=== PATIENT | female | born 1995 | race Caucasian/White ===

== ENCOUNTER 2017-10-03 17:07 | Emergency (ER) | payer OTHER ==
[2017-10-03] MEDS ORDERED: Benzoin Compound STICK TOPICAL ONE (18:18)
[2017-10-03 18:23] VITALS: BP 82/50
[2017-10-03] MEDS ORDERED: Tetan/Diph/Pertus SYR(Tdap)* 0.5 ML SYR(BOOSTRIX) use SYR IM ONE (18:25)
--- NOTE | 2017-10-03 18:43 | UC ---
Laceration HPI - HPI Summary HPI Summary: Fell last night and hit the right side of her forehead on her tissue drawer has a 5 mm laceration on her head that is already scabbed and beginning to heal together - History Of Current Complaint Chief Complaint: UCLaceration Stated Complaint: HEAD LACERATION Time Seen by Provider: 10/03/17 18:14 Hx Obtained From: Patient Hx Last Menstrual Period: 09/17/17 Laceration Location: Head Mechanism Of Injury: Blunt Trauma Onset/Duration: Sudden Onset Severity: Mild Pain Intensity: 4 Pain Scale Used: 0-10 Numeric Aggravating Factors: Nothing - Allergies/Home Medications Allergies/Adverse Reactions: Allergies Allergy/AdvReac Type Severity Reaction Status Date / Time No Known Allergies Allergy Verified 10/03/17 18:17 Home Medications: Home Medications NK [No Home Medications Reported] 10/03/17 [History Confirmed 10/03/17] PMH/Surg Hx/FS Hx/Imm Hx Previously Healthy: Yes - Surgical History Surgical History: Yes Surgery Procedure, Year, and Place: L ACL - Family History Known Family History: Positive: None - Social History Occupation: Student Lives: With Family Alcohol Use: None Substance Use Type: None Smoking Status (MU): Never Smoked Tobacco - Immunization History Most Recent Tetanus Shot: 2006 Review of Systems Constitutional: Negative Skin: Other - 5 mm well approximated scabbed laceration to the right side of her forehead Eyes: Negative ENT: Negative Respiratory: Negative Cardiovascular: Negative Gastrointestinal: Negative Genitourinary: Negative Motor: Negative Neurovascular: Negative Musculoskeletal: Negative Neurological: Negative Psychological: Negative Is Patient Immunocompromised?: No All Other Systems Reviewed And Are Negative: Yes Physical Exam Triage Information Reviewed: Yes Appearance: Well-Appearing, No Pain Distress, Well-Nourished Vital Signs: Initial Vital Signs Temp 98.8 F 10/03/17 18:18 Pulse 75 10/03/17 18:18 Resp 16 10/03/17 18:18 BP 82/50 10/03/17 18:18 Pulse Ox 99 10/03/17 18:18 Vital Signs Reviewed: Yes Eye Exam: Normal Eyes: Positive: Conjunctiva Clear ENT Exam: Normal ENT: Positive: Normal ENT inspection, Hearing grossly normal, Pharynx normal. Negative: Trismus, Muffled voice, Hoarse voice Dental Exam: Normal Neck exam: Normal Neck: Positive: Supple, Nontender, No Lymphadenopathy Respiratory Exam: Normal Respiratory: Positive: Chest non-tender, No respiratory distress, No accessory muscle use Cardiovascular Exam: Normal Cardiovascular: Positive: RRR, Pulses Normal, Brisk Capillary Refill Musculoskeletal Exam: Normal Musculoskeletal: Positive: Strength Intact, ROM Intact, No Edema Neurological Exam: Normal Neurological: Positive: Alert, Muscle Tone Normal Psychological Exam: Normal Skin Exam: Other Skin: Positive: Other - 5 mm well approximated laceration to her right side of her forehead that is scabbed and does not open with manipulation Laceration Repair - Laceration Repair 1 Description: Linear Laceration Size After Repair: Length (cm) - 0.5, Width (mm) - 1 W put at Modified For Repair: No Cleansing Completed Via Routine Prep: Yes Irrigation With Pressure Irrigation Device: Yes Closure Material: SteriStrips Closure Method: Single Layer Laceration Course/Dx - Course/Dx Course Of Treatment: Dressing changed to Steri-Strips. Boostrix updated. Follow with PCP or [facility] as needed. Scar precautions reviewed with patient - Differential Dx - Laceration/Wound Provider Diagnoses: 5mm Laceration to right side of her forehead, up date tetanus Discharge - Sign-Out/Discharge Documenting (check all that apply): Discharge/Admit/Transfer - Discharge Plan Condition: Stable Disposition: HOME Patient Education Materials: Diphtheria/Acellular Pertussis/Tetanus Booster Vaccine (By injection), Steristrips (ED), Facial Laceration (ED) Referrals: [facility] [Outside] - If Needed - Billing Disposition and Condition Condition: STABLE Disposition: HOME
== END 2017-10-03 18:49 | disposition home or self-care (01) ==
LOC: UCCORT 17:07
DX: S01.81XA Laceration without foreign body of other part of head, initial encounter (principal); W18.30XA Fall on same level, unspecified, initial encounter; Y92.9 Unspecified place or not applicable; Z23 Encounter for immunization
CPT/HCPCS: 12011; 90471; 90715; 99202; G0463

== ENCOUNTER 2018-05-12 16:57 | Emergency (ER) | payer OTHER ==
[2018-05-12 17:09] VITALS: BP 108/57
--- NOTE | 2018-05-12 17:32 | UC ---
Hand/Wrist HPI - HPI Summary HPI Summary: Patient presents to urgent care with right hand pain. Patient's the weekend was goofing around with friends when she actually struck you cement wall. Patient with bruising and discomfort on her right fifth metacarpal. Patient states swelling is gotten better. Patient's been taking Tylenol. Patient states she still has discomfort with movement. 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 and had difficulty pulling herself up on a being today during class. Patient wanted check for fracture. Patient's right-hand dominant. Patient states she is not . Patient without any other injuries. Patient denies mistreatment. Pts medications reviewed this visit - History Of Current Complaint Chief Complaint: UCUpperExtremity Stated Complaint: RIGHT HAND PAIN Time Seen by Provider: 05/12/18 17:23 Hx Obtained From: Patient Hx Last Menstrual Period: 05/01/18 ?: No Onset/Duration: Sudden Onset Severity Initially: Moderate Severity Currently: Moderate Pain Intensity: 4 - Allergies/Home Medications Allergies/Adverse Reactions: Allergies Allergy/AdvReac Type Severity Reaction Status Date / Time No Known Allergies Allergy Verified 05/12/18 17:04 PMH/Surg Hx/FS Hx/Imm Hx Previously Healthy: Yes - Surgical History Surgical History: Yes Surgery Procedure, Year, and Place: L ACL - Family History Known Family History: Positive: None, Non-Contributory - Social History Occupation: Student Lives: Dormitory/Roommates Alcohol Use: Occasionally Substance Use Type: None Smoking Status (MU): Never Smoked Tobacco - Immunization History Most Recent Tetanus Shot: 2006 Review of Systems All Other Systems Reviewed And Are Negative: Yes Skin: Positive: Bruising, Other - swelling Motor: Positive: Other - swelling and pain right 5th finger Physical Exam - Summary Physical Exam Summary: Vital Signs Reviewed: Yes A+Ox3, no distress Eyes: Conjunctiva Clear ENT: Hearing grossly normal neck: supple Respiratory: Positive: No respiratory distress, No accessory muscle use Cardiovascular: skin color reflect adequate perfusion, 2+ radial, 2+ ulnar CBT <2 sec Musculoskeletal Exam: + flex/ext elbow + pronate/supinate + flex/ext wrist + TTP distal 5th MC - no crepitus no pain carpal, wrist, phalanges full flex.ext against resistance of MCP, DIP,PIP 5ht Neurological: Positive: Alert, ambulatory without difficulty Psychological: Positive: Normal Response To Family Skin: Positive: no rash, mild ecchymosis medial aspect right 5th MC mild edema Triage Information Reviewed: Yes Vital Signs: Initial Vital Signs Temp 97.3 F 05/12/18 17:04 Pulse 73 05/12/18 17:04 Resp 16 05/12/18 17:04 BP 108/57 05/12/18 17:04 Pulse Ox 100 05/12/18 17:04 Diagnostics - Radiology No standard instances Radiology Interpretation Completed By: Radiologist - Patient Name: ALESSANDRO ADAMS Medical Record#: [id number] Ordering Physician: Ebony Loera MD Acct.#: [id number] : 1995 Age: 22 Sex: F Location: [facility]ARE [facility] Exam Date: 05/12/181717 ADM Status: REG ER Order Information: HAND - RIGHT MINIMUM 3 VIEWS Accession Number: [id number] CPT: 54862 Indication: Right hand pain. 3 views of the right hand are reviewed. There is no fracture or dislocation. No other bone or joint abnormality is identified. IMPRESSION: No fracture of the right hand is noted. < Electronically signed by Payton Magana MD in [place]> 05/12/181743 Dictated By: Payton Magana MD Dictated Date/Time: 05/12/181743 Transcribed Date/Time: 05/12/181742 Copy to: CC:Ebony Loera MD; No Primary Care Phys,NOPCP Imaging - [facility] Imaging - [place] [facility] [address] [address] ph ([phone]) ph ([phone]) ph ([phone]) This report is only to be considered final once signed by the Provider(s) as displayed in the "<Electronically Signed by >" field (s). Absence of a signature indicates the report is in a draft status and still needs to be finalized. In the event this document was created by someone other than the signing Provider, the individual initiating the document will be listed in the "Entered by:" or "Dictated by:" aguilar. 1 of 1 Hand/Wrist Course/Dx - Course Course Of Treatment: Pt presents for evaluation of injury to right hand, medial aspect along MC. Pt states was "goofing around" on the weekend and accidently punched cement wall. Pt RHD. Pt with midl discomfort distal right 5th MC no crepits mild edema, ecchymosis. imaging neg fx. splint. sports med. motrin/ apap. rest. ice. return precautions - Differential Dx/Diagnosis Provider Diagnosis: Contusion of right hand Discharge - Sign-Out/Discharge Documenting (check all that apply): Patient Departure All imaging exams completed and their final reports reviewed: Yes - Discharge Plan Condition: Stable Disposition: HOME Patient Education Materials: Contusion in Adults (ED) Referrals: [facility] [Provider Group] (Request the [place] office for convenience) No Primary Care Phys,NOPCP [Primary Care Provider] - Additional Instructions: - Wear splint for comfort and support - Okay to alternate ibuprofen (Advil, motrin) 600mg and tylenol every 3hours for pain. Take with food - apply ice (wrapped in a towel) 20 minutes at a time, 2-3 times a day - contact the sports medicine providers to schedule a follow-up appointment this week - okay to request the [place] office - Billing Disposition and Condition Condition: STABLE Disposition: Home
== END 2018-05-12 18:05 | disposition home or self-care (01) ==
LOC: UCCORT 16:57
DX: S60.221A Contusion of right hand, initial encounter (principal); W22.09XA Striking against other stationary object, initial encounter; Y92.9 Unspecified place or not applicable
CPT/HCPCS: 99211; G0463